=== PATIENT | female | born 1995 ===

== ENCOUNTER 2025-08-16 19:06 | Inpatient (IN) | payer BC ==
[~2025-08-16] VITALS: Ht 160 cm; Wt 132.4 kg
[2025-08-16] MEDS ORDERED: Carboprost Tromethamine 250 MCG/ML 1ML Amp IM PRN (20:00)
[2025-08-16] MEDS ORDERED: FentaNYL 2mcg/ml-Bup 0.1% Epd 250 ML EPI PRN (20:00)
[2025-08-16] MEDS ORDERED: OXYTOCIN/RINGER'S LACTATE 500 ML IV PRN (20:00)
[2025-08-16] MEDS ORDERED: ePHEDrine Sulfate 50 MG/ML 1ML Injection XX PRN (20:00)
[2025-08-16] MEDS ORDERED: Penicillin G Potassium 5,000,000 UNITS in NS 250 ML IV ONE (20:00)
[2025-08-16] MEDS ORDERED: Tranexamic Acid 100 ML IV SCH (20:00)
[2025-08-16] MEDS ORDERED: Methylergonovine Maleate 0.2MG / ML 1ML Amp IM PRN (20:00)
[2025-08-16] MEDS ORDERED: Oxytocin 10 Unit / ML Vial IM PRN (20:00)
[2025-08-16] MEDS ORDERED: Ondansetron HCl 2 MG / ML 2ML Vial IV PRN (20:10)
[2025-08-16] MEDS ORDERED: FentaNYL Citrate 50 MCG/ML 2 ML Injection IV PRN (20:15)
[2025-08-16 20:17] VITALS: BP 137/88
[2025-08-16 21:13] LABS: BASOPHILS ABSOLUTE AUTO 0.04 K/mm3 (0.00-0.23); BASOPHILS PERCENT AUTO 0 % (0-2); EOSINOPHILS ABSOLUTE AUTO 0.09 K/mm3 (0.00-0.68); EOSINOPHILS PERCENT AUTO 1 % (0-6); Hematocrit 32.3 % (33.0-51.0); Hemoglobin 11.3 g/dL (11.5-16.0); IMMATURE GRAN ABSOLUTE AUTO 0.25 K/mm3 (0.00-0.10); IMMATURE GRAN PERCENT AUTO 2 % (0-1); LYMPHOCYTES ABSOLUTE AUTO 2.92 K/mm3 (0.84-5.20); LYMPHOCYTES PERCENT AUTO 19 % (21-46); MONOCYTES ABSOLUTE AUTO 0.88 K/mm3 (0.16-1.47); MONOCYTES PERCENT AUTO 6 % (4-13); Mean Corpuscular HGB Conc 35.0 g/dL (31.5-36.5); Mean Corpuscular Volume 88 fL (80-100); NEUTROPHILS ABSOLUTE AUTO 11.24 K/mm3 (1.96-9.15); NEUTROPHILS PERCENT AUTO 73 % (41-73); NRBC ABSOLUTE 0.00 K/mm3 (0.00-0.02); NRBC Auto 0.0 /100 WBC (0.0-0.2); Platelet Count 252 K/mm3 (150-400); RDW Coefficient Variation 14.2 % (11.7-14.2); RDW Standard Deviation 45.1 fL (35.1-46.3)
[2025-08-16 22:00] VITALS: BP 121/87
[2025-08-17] VITALS (20 sets, daily range): BP systolic 106–179; BP diastolic 54–91
[2025-08-17] MEDS ORDERED: Penicillin G Potassium 2,500,000 UNITS in Dextrose 5% 100 ML IV SCH ×2 (02:00→15:00)
[2025-08-17] MEDS ORDERED: FentaNYL Citrate 50 MCG/ML 2 ML Injection ONE (19:06)
[2025-08-18] VITALS (12 sets, daily range): BP systolic 118–144; BP diastolic 56–85
[2025-08-18] MEDS ORDERED: Witch Hazel/Glycerin PADS TOP PRN (05:35)
[2025-08-18] MEDS ORDERED: Ketorolac Tromethamine 30mg Vial IV PRN (05:35)
[2025-08-18] MEDS ORDERED: Methylergonovine Maleate 0.2MG / ML 1ML Amp IM PRN (05:35)
[2025-08-18] MEDS ORDERED: OXYTOCIN/RINGER'S LACTATE 500 ML IV SCH (05:40)
[2025-08-18] MEDS ORDERED: FLU VACC TS2025-26(6MOS UP)/PF 45 MCG/0.5 ML SYRINGE IM SCH (05:40)
[2025-08-18] MEDS ORDERED: Carboprost Tromethamine 250 MCG/ML 1ML Amp IM PRN (05:40)
[2025-08-18] MEDS ORDERED: Benzocaine Topical Anesthetic Spray 60GM TOP PRN (05:40)
[2025-08-18] MEDS ORDERED: Prenatal Vit/FE Fumarate/FA 1 Tab PO SCH (09:00)
[2025-08-18] MEDS ORDERED: Methylergonovine Maleate 0.2MG / ML 1ML Amp IV ONE (16:03)
[2025-08-19 00:10] VITALS: BP 128/79
[2025-08-19 04:06] VITALS: BP 139/90
[2025-08-19 07:10] VITALS: BP 120/82
[2025-08-19] MEDS ORDERED: IBUP800 PO (07:22)
[2025-08-19] MEDS ORDERED: PRENATAL TABLE1 EAC2 PO (07:22)
[2025-08-19] MEDS ORDERED: ACET500 PO (07:22)
== END 2025-08-19 11:50 | disposition home or self-care (01) | DRG 807 ==
LOC: OBS 19:06 → BC 19:11 → OBS 19:20 → BC 19:30
PROVIDERS: ADMIT Advanced Practice Midwife
PROC: 3E033VJ Introduction of Other Hormone into Peripheral Vein, Percutaneous Approach (ICD-10-PCS; 2025-08-16)
PROC: 3E0P7VZ Introduction of Hormone into Female Reproductive, Via Natural or Artificial Opening (ICD-10-PCS; 2025-08-16)
PROC: 4A1HXCZ Monitoring of Products of Conception, Cardiac Rate, External Approach (ICD-10-PCS; 2025-08-16)
PROC: 10907ZC Drainage of Amniotic Fluid, Therapeutic from Products of Conception, Via Natural or Artificial Opening (ICD-10-PCS; 2025-08-17)
PROC: 10D07Z6 Extraction of Products of Conception, Vacuum, Via Natural or Artificial Opening (ICD-10-PCS; principal; 2025-08-18)
PROC: 0KQM0ZZ Repair Perineum Muscle, Open Approach (ICD-10-PCS; 2025-08-18)
DX: O48.0 Post-term pregnancy (principal); Z37.0 Single live birth; Z3A.40 40 weeks gestation of pregnancy; O99.214 Obesity complicating childbirth; O99.52 Diseases of the respiratory system complicating childbirth; J45.909 Unspecified asthma, uncomplicated; O99.824 Streptococcus B carrier state complicating childbirth; O70.1 Second degree perineal laceration during delivery; O77.0 Labor and delivery complicated by meconium in amniotic fluid; O69.81X0 Labor and delivery complicated by cord around neck, without compression, not applicable or unspecified; E66.01 Morbid (severe) obesity due to excess calories
CPT/HCPCS: 36415; 85025; 86850; 86900; 86901; 86923; A9270; J1885; J2210; J2540; J2590; J7050; J7120